=== PATIENT | male | born 1960 | race Two or more races ===

== ENCOUNTER → 2016-11-04 | Outpatient (CLI) | payer SELFPAY ==
[~2016-11-04] MED LIST: DELTASONE50 MG PO; KEPPRA500 MG PO; NORCO 5-325 MG1 TAB PO; PROVENTIL OR V6.7 GM INH
== END | disposition disaster alternative care site (69) ==
LOC: GLAB 16:45
DX: R56.9 Unspecified convulsions (principal)

== ENCOUNTER → 2016-11-25 | Outpatient (CLI) | payer SELFPAY ==
[2016-11-25 08:54] LABS: ESTIMATED GFR (MDRD EQUATION) > 60
== END | disposition disaster alternative care site (69) ==
LOC: GLAB 08:00
PROVIDERS: Neurological Surgery
DX: D49.6 Neoplasm of unspecified behavior of brain (principal); R60.0 Localized edema
CPT/HCPCS: A9577

== ENCOUNTER 2017-03-01 12:56 | Emergency (ER) | payer SELFPAY ==
--- NOTE | ~2017-03-01 | ER ---
PATIENT'S NAME: CHIKI DURBIN [facility] AGE: 56 Y [address] ROOM: [place] [id number] LOCATION: [facility] ADMIT DATE: 03/01/2017 ER/Outpatient Report DISCHARGE DATE: 03/01/2017 FAMILY PHYSICIAN: Timothy Victoria MD ATTENDING PHYSICIAN: Spike Grewal CHIEF COMPLAINT: Seizure. HISTORY OF PRESENT ILLNESS: Mr. Durbin had a seizure yesterday. He tried to contact his neurosurgeon, Dr. Hassan, but was unable to. It was recommended that he be seen today. He elected to come here to see his primary care physician. Of note, he was started on a medication on Wednesday or Wednesday, which may have caused him to have the seizure. It was Ritalin. He denies any issues today. He denies any new or persistent symptoms such as vision changes, headaches, nausea, vomiting or difficulty walking. He does have some fatigue on the left side which has been more progressive over the last several weeks to months. He is just taking his antiepileptic medication for this. He has a history of glioblastoma status post resection x2 with negative margins by report. No other acute findings. PAST MEDICAL HISTORY: Documented on the record and reviewed by me. SOCIAL HISTORY: Documented on the record and reviewed by me. MEDICATIONS: Documented on the record and reviewed by me. ALLERGIES: DOCUMENTED ON THE RECORD AND REVIEWED BY ME. REVIEW OF SYSTEMS: All systems were reviewed and negative except as noted in the HPI. PHYSICAL EXAMINATION: VITAL SIGNS: Blood pressure 147/65, pulse 58, respiratory rate 18, temperature 97.9, SpO2 is 96% on room air. Pain 0/10. GENERAL: Age-appropriate male. Upright on exam table. No apparent pain or distress. NEUROLOGIC: Awake and alert. GCS 15. Eyes with no nystagmus there. Extraocular movements are intact. Extremities have normal strength and symmetry. No obvious abnormalities. No gait abnormality appreciated. No PATIENT'S NAME: CHIKI DURBIN [facility] AGE: 56 Y [address] ROOM: [place] [id number] LOCATION: [facility] ADMIT DATE: 03/01/2017 ER/Outpatient Report DISCHARGE DATE: 03/01/2017 FAMILY PHYSICIAN: Timothy Victoria MD ATTENDING PHYSICIAN: Spike Grewal coordination abnormalities. HEENT: Normocephalic, atraumatic. Eyes are PERRL. Oropharynx clear. NECK: Supple. Trachea is midline. CHEST/HEART: Regular rate and rhythm with no murmurs. LUNGS: Clear to auscultation bilateral with no rhonchi, wheezes, or rales. ABDOMEN: Soft, nontender, and nondistended. No rebound or guarding. BACK: Normal to inspection on palpation. EXTREMITIES: Warm and well perfused without edema or deformities. SKIN: Appears to be clean, dry and intact. LABORATORY DATA AND X-RAYS: Keppra level is pending. CBC with no appreciable electrolyte abnormalities. Normal renal functions. CBC is unremarkable. CMS without electrolyte, renal or hepatobiliary abnormalities that are appreciable. MRI of the brain reveals expanding tissue mass, tumor versus scar tissue with surrounding edema. IMPRESSION: 1. Tumor recurrence versus localized edema with unclear etiology. 2. Breakthrough seizure. EMERGENCY DEPARTMENT COURSE: The patient was seen and evaluated as above. No electrolyte abnormalities. Keppra level is pending. Discussed case with Dr. Hassan. We will get the MRI. The MRI confirms that the tissue mass is expanding. Dr. Hassan has recommended Decadron and increasing Keppra. I discussed the case with Dr. Sow, Neurology. He agrees with maximizing Keppra to 1000 mg twice daily. We will do so. The patient was given prescription for Decadron. He is to make an appointment to see Dr. Hassan on 03/17/2017. He is to return if worse. All questions answered. DISPOSITION: The patient was discharged in good condition. MD NASIR SANCHEZ/jake /[id number] d: 03/02/17706 t: 03/22/17 165, OUTPATIENT REPORT
[2017-03-01 13:33] LABS: BASOPHIL % 0.5 %; EOSINOPHIL # 0.1 K/uL (0.0-0.5); EOSINOPHIL % 2.1 %; HEMATOCRIT 41.5 % (37.0-53.0); HEMOGLOBIN 14.8 g/dL (12.0-17.0); IMMATURE GRANULOCYTE % 0.2 %; LYMPHOCYTE # 1.5 K/uL (0.8-4.0); LYMPHOCYTE % 34.3 %; MCH 31.8 pg (27.0-34.0); MCHC 35.7 gm/dL (32.0-36.5); MCV 89.1 fl (83.0-98.0); MONOCYTE # 0.3 K/uL (0.0-1.0); MONOCYTE % 6.8 %; MPV 10.6 fl (9.4-12.4); NEUTROPHIL # (ANC) 2.4 K/uL (1.4-9.0); NEUTROPHIL % 56.1 %; NRBC % 0 /100WBC (0-0.00); PLATELET COUNT 220 K/uL (150-450); RBC 4.66 M/uL (4.00-6.00); RDW-CV 11.9 % (11.9-14.6); WBC 4.3 K/uL (4.0-11.0)
[2017-03-01 13:51] LABS: ALBUMIN 3.8 gm/dL (3.5-5.0); ALK PHOS 88 IU/L (33-138); ALT 34 IU/L (12-78); ANION GAP 9.6 (10.0-19.0); AST 26 IU/L (10-40); BLOOD UREA NITROGEN 13 mg/dL (6-24); CALCIUM 8.2 mg/dL (8.5-10.5); CHLORIDE 105 mMol/L (96-110); CO2 29 mMol/L (22-32); CREATININE 0.8 mg/dL (0.6-1.3); ESTIMATED GFR (MDRD EQUATION) > 60; POTASSIUM 3.6 mMol/L (3.7-5.1); SODIUM 140 mMol/L (135-145); TOTAL BILIRUBIN 0.5 mg/dL (0.0-1.5)
== END 2017-03-01 17:28 | disposition disaster alternative care site (69) ==
LOC: GMED 12:56
PROVIDERS: Emergency Medicine
DX: R56.9 Unspecified convulsions (principal); I11.9 Hypertensive heart disease without heart failure; Z79.899 Other long term (current) drug therapy; Z85.841 Personal history of malignant neoplasm of brain
CPT/HCPCS: A9577